=== PATIENT | female | born 1965 | race Caucasian/White ===

== ENCOUNTER 2019-09-07 14:44 | Outpatient (CLI) | payer OTHER, SELFPAY ==
--- NOTE | ~2019-09-07 | XR_ITS ---
EXAMINATION: XR wrist RT min 3V DATE: 09/07/2019 15:05 INDICATION: Right wrist pain. Fall. TECHNIQUE: 4 views of right wrist were obtained. COMPARISON: None. FINDINGS: Bone alignment is normal. No fracture. Joint spaces are well maintained. IMPRESSION: 1. Normal right wrist. Reviewed, dictated and finalized at location A. IMPRESSION: 1. Normal right wrist.
== END 2019-09-07 14:45 | disposition home or self-care (01) ==
PROVIDERS: PCP Family Medicine
DX: M25.531 Pain in right wrist (principal); W19.XXXA Unspecified fall, initial encounter
CPT/HCPCS: 73110

== ENCOUNTER → 2020-12-24 14:39 | Outpatient (CLI) | payer OTHER, SELFPAY ==
--- NOTE | ~2020-12-24 | XR_ITS ---
EXAMINATION: XR chest 2V 12/24/2020 15:04 INDICATION: Chest pain PROCEDURE: 2 view chest COMPARISON: No prior studies for comparison. FINDINGS: The lungs are clear. The cardiomediastinal silhouette is within normal limits. There are no pleural effusions. There is no pneumothorax suspected. IMPRESSION: 1: NO ACUTE CARDIOPULMONARY DISEASE. Reviewed, dictated and finalized at location A.
--- NOTE | ~2020-12-24 | XR_ITS ---
XR lumbar spine 2-3V DATE: 12/24/2020 15:04 INDICATION: Lumbar pain/radiculopathy TECHNIQUE: Standing AP and lateral and coned lateral lumbosacral views COMPARISON: None FINDINGS: There is diffuse osteopenia. There is mild dextroscoliosis of the thoracolumbar spine. There is mild degenerative disc disease at L2-3 and L3-4 and L5-S1. There is moderately severe degenerative disc disease at L4-5. The sacroiliac joints are intact. IMPRESSION: Multilevel degenerative disc disease, most severe at L4-5 Diffuse osteopenia Reviewed, dictated and finalized at location A.
== END ==
PROVIDERS: PCP Family Medicine; Visit Provider Physician Assistant
DX: R07.9 Chest pain, unspecified (principal); M54.16 Radiculopathy, lumbar region; M51.36 Other intervertebral disc degeneration, lumbar region; M85.88 Other specified disorders of bone density and structure, other site
CPT/HCPCS: 71046; 72100

== ENCOUNTER → 2021-01-13 17:33 | Outpatient (CLI) | payer OTHER, SELFPAY ==
--- NOTE | ~2021-01-13 | MR_ITS ---
EXAMINATION: MR lumbar spine wo con EXAM DATE: 01/13/2021 18:38 INDICATION: M54.16 - Lumbar Radiculopathy . Low back pain. TECHNIQUE: Multi-sequential, multiplanar MR images of the lumbar spine were obtained without contrast . Sagittal T1, T2, T2 fat saturation images. Axial T2 weighted images. Correlation is made to lumba r x-ray 2007. FINDINGS: There is moderate loss of the L4-5 disc height, mild disc disease at the other lumbar level s. The conus medullaris terminates at the L1-2 level and has normal signal intensity and morphology. There are no suspicious marrow signal abnormalities. The vertebral bodies are aligned in the AP dime nsion. Paraspinal soft tissue is unremarkable. Level by level evaluation: T12-L1: Disc does not extend beyond the endplate margin. Facet arthropathy: None. Neural foraminal stenosis: No stenosis. Central canal stenosis: No stenosis. L1-L2: There is a mild diffuse disc bulge. Facet arthropathy: Minimal. Neural foraminal stenosis: No stenosis. Central canal stenosis: No stenosis. L2-L3: There is a mild to moderate diffuse disc bulge. Facet arthropathy: Mild. Neural foraminal stenosis: No stenosis. Central canal stenosis: No stenosis. L3-L4: There is a mild diffuse disc bulge. Facet arthropathy: Mild. Neural foraminal stenosis: No stenosis. Central canal stenosis: No stenosis. L4-L5: There is a mild to moderate diffuse disc bulge. Facet arthropathy: Mild. Neural foraminal stenosis: Mild to moderate right, mild left. Central canal stenosis: Mild. L5-S1: There is a mild diffuse disc bulge. Facet arthropathy: Mild. Neural foraminal stenosis: Mild left. Central canal stenosis: No stenosis. IMPRESSION: 1. L4-5 moderate disc disease. 2. Less spondylosis other levels. Reviewed, dictated and finalized at location A.
== END ==
PROVIDERS: Visit Provider Physician Assistant
DX: M47.817 Spondylosis without myelopathy or radiculopathy, lumbosacral region (principal)
CPT/HCPCS: 72148

== ENCOUNTER 2024-09-16 17:07 | Emergency (ER) | payer SELFPAY ==
[2024-09-16 17:16] VITALS: BP 118/89; PULSE 89; RESP 16; TEMP 37.2; O2SAT 100
--- NOTE | 2024-09-16 17:27 | ED.FEMALEGU ---
HPI - Female Genitourinary General Chief complaint: Urogenital-Female Stated complaint: Uti Symptoms Time Seen by Provider: 09/16/24 17:27 Source: patient and RN notes reviewed Mode of arrival: ambulatory Limitations: no limitations History of Present Illness HPI Narrative: 59 y/o female presented for c/o burning with urination and pink tinged urine last night. Says this is how UTIs feel. Denies nausea, vomiting, abdominal pain, flank pain, constipation, diarrhea, fevers or chills. Pt appears drowsy, speaking minimally; accompanied by a male. Related Data Home Medications ?Medication ?Instructions ?Recorded ?Confirmed ?Last Taken ?Type cyclosporine 0.05 % eye drops in a 1 drp EACH EYE Q12H 09/16/24 09/16/24 Unknown History dropperette Allergies Allergy/AdvReac Type Severity Reaction Status Date / Time acetaminophen (Endocet) Allergy Unknown Unknown Verified 09/16/24 17:17 erythromycin base Allergy Unknown Unknown Verified 09/16/24 17:17 oxycodone Allergy Unknown Unknown Verified 09/16/24 17:17 Penicillins Allergy Unknown Unknown Verified 09/16/24 17:17 topiramate Allergy Unknown bone pain Verified 09/16/24 17:10 sertraline AdvReac Intermediate Abdominal Verified 09/16/24 17:10 Pain Review of Systems Review of Systems: CONSTITUTIONAL: Denies body aches, fever, chills, or sweats. CARDIOVASCULAR: Denies chest pain, palpitations, or edema. RESPIRATORY: Denies cough or dyspnea. GASTROINTESTINAL: Denies abdominal pain, nausea, vomiting, or diarrhea. GENITOURINARY: Reports dysuria, frequency, hematuria, denies flank pain, discharge SKIN: Denies rash, itching, or wounds. MUSCULOSKELETAL: Denies back pain or myalgia. [facility] Past Medical History Medical History Esophageal reflux Family History Family History Other Depression Family history of hypercholesterolemia Family history of malignant neoplasm of breast Family history of mental disorder Hypertension Social History Social History Smoking status: Never smoker Alcohol intake: never Comments At time of signature, I have reviewed and agree with nursing past medical, surgical, social and family history unless otherwise noted. Please see nursing chart for further information. There is no relevant family history pertinent to the presenting complaint Exam Narrative: GENERAL: Well-appearing, drowsy ENT: Mucous membranes pink and moist. CHEST: No respiratory distress. Clear to auscultation. HEART: Regular rate and rhythm. ABDOMEN: Soft, nontender, nondistended, normal active bowel sounds. No CVA tenderness SKIN: Warm, dry, no rash. NEURO: No focal deficits. Alert and oriented x3. Gait steady. PSYCH: Flat affect. Speaks minimally, quietly. Course Course Emergency Course: Patient is aware of diagnosis, understands and agrees to treatment plan. Anticipatory guidance given. Patient agrees to follow-up as directed and is aware of reasons to seek care at the emergency department. Portions of this record may have been created with voice recognition software Level of Care: Express Care Visit Vital Signs Vital signs: Vital Signs Temperature 99 F 09/16/24 17:16 Pulse Rate 89 09/16/24 17:16 Respiratory Rate 16 09/16/24 17:16 Blood Pressure 118/89 09/16/24 17:16 Pulse Oximetry 100 09/16/24 17:16 Oxygen Delivery Room Air 09/16/24 17:16 Temperature 99 F 09/16/24 17:16 Pulse Rate 89 09/16/24 17:16 Respiratory Rate 16 09/16/24 17:16 Blood Pressure 118/89 09/16/24 17:16 Pulse Oximetry 100 09/16/24 17:16 Oxygen Delivery Room Air 09/16/24 17:16 Reviewed MDM - Female Genitourinary MDM Narrative Medical decision making narrative: Discussed physical exam findings and urine dip. Advised supportive measures and signs/symptoms to go to the ER. Pt is appropriate for outpt treatment and f/u. Differential Diagnosis Differential diagnosis: Likely urinary tract infection, vaginitis and cystitis Discharge Plan Discharge Clinical Impression: Urinary tract infection Patient Disposition: Home Condition: Stable Instructions: Antibiotic Form, Urinary Tract Infection in Women (ED) Additional Instructions: Take the antibiotic as prescribed The urine will be sent of for a culture to identify what type of bacteria is causing your infection. If the culture shows that the antibiotic will not get rid of your infection, you will be notified and a new antibiotic will be called in for you. Increase water intake you will need to follow up with your PCP, call to schedule an appointment. Go to the ER for any worsening symptoms or concerns Patient Language: [place] Citizen Prescriptions: New sulfamethoxazole-trimethoprim [Bactrim DS] 800-160 mg tablet 1 tablet PO Q12H 5 Days Qty: 10 0RF No Action cyclosporine 0.05 % dropperette 1 drp EACH EYE Q12H diazepam 5 mg tablet See Rx Instructions PO BID PRN (Reason: ibs) Qty: 90 1RF Rx Instructions: `1/2 - 1 tab PO twice a day PRN ibs exacerbation do not take with alprazolam, clonazepam alprazolam 0.5 mg tablet 0.5 mg PO BID-TID Qty: 180 1RF Rx Instructions: do not take with clonazepam or diazepam clonazepam [Klonopin] 0.5 mg tablet 0.5 mg PO BID PRN (Reason: anxiety) 90 Days Qty: 60 1RF Rx Instructions: Do not take with xanax or diazepam. alprazolam 0.5 mg tablet extended release 24 hr 0.5 mg PO DAILY Qty: 30 1RF Follow-up/Referrals: PHYSICIAN,[employer] [Primary Care Provider] - Time of Disposition: 17:38
[2024-09-16 17:47] LABS: EDUAAPPEAR Clear; EDUABILI Negative (Negative); EDUABLOOD 2+ (Negative); EDUACOLOR1 Light/Pale; EDUAGLUCOSE Negative (Negative); EDUAKETONE Negative (Negative); EDUALEUKO 1+ (Negative); EDUANITRATE Negative (Negative); EDUAPH 6.5; EDUAPROTEIN Negative (Negative); EDUASPGRAVITY 1.015; EDUAUROBILI 0.2
== END 2024-09-16 17:38 | disposition home or self-care (01) ==
PROVIDERS: Emergency Provider Nurse Practitioner Family
DX: N39.0 Urinary tract infection, site not specified (principal); K21.9 Gastro-esophageal reflux disease without esophagitis
CPT/HCPCS: 81003; 87086; 87186; 99213; G0463